=== PATIENT | male | born 1965 | race Caucasian/White ===

== ENCOUNTER 2018-12-19 16:25 | Inpatient (IN) | payer MEDICAID ==
[~2018-12-19] VITALS: Ht 185.4 cm; Wt 99.3 kg
[2018-12-19] MEDS ORDERED: BUPR-93 PO (17:59)
[2018-12-19] MEDS ORDERED: BUSP10TA23 PO (17:59)
[2018-12-19] MEDS ORDERED: LORazepam 1 MG TABLET PO PRN (20:00)
[2018-12-19] MEDS ORDERED: HALOPERIDOL 5 MG TABLET PO PRN (20:00)
[2018-12-19] MEDS ORDERED: DOCUSATE SODIUM 100 MG CAPSULE PO PRN (21:00)
[2018-12-19] MEDS ORDERED: ACETAMINOPHEN 325 MG TABLET PO PRN (21:00)
[2018-12-19] MEDS ORDERED: MAGNESIUM HYDROXIDE SUSPENSION 30 ML UDCUP PO PRN (21:00)
[2018-12-19] MEDS ORDERED: LOPERAMIDE HCL 2 MG CAPSULE PO PRN (21:00)
[2018-12-19] MEDS ORDERED: ONDANSETRON HCL 4 MG TABLET PO PRN (21:00)
[2018-12-19] MEDS ORDERED: PETROLATUM,WHITE 28 GM JELLY TP PRN (21:00)
[2018-12-19] MEDS ORDERED: GuaiFENesin/D-METHORPHAN [SUGAR-FREE] 200-20MG/10 ML SYRUP UDCUP PO PRN (21:00)
[2018-12-19] MEDS ORDERED: NICOTINE 14 MG/24 HOUR PATCH TD PRN (21:00)
[2018-12-19] MEDS ORDERED: CloNIDine HCL 0.1 MG TABLET PO PRN (21:00)
[2018-12-19] MEDS ORDERED: MAG HYDROX/AL HYDROX/SIMETH ES 30 ML SUSPENSION UDCUP PO PRN (21:00)
[2018-12-19] MEDS ORDERED: ALBUTEROL SULFATE HFA 90 MCG/PUFF 8 GM INHALER IH PRN (21:00)
[2018-12-19 21:10] VITALS: BP 143/104
[2018-12-19 22:10] VITALS: BP 109/72
[2018-12-20 06:03] VITALS: BP 114/79
[2018-12-20 07:59] LABS: BASOPHILS % (AUTO) 0.3 % (0.0-2.0); EOSINOPHILS % (AUTO) 3.9 % (1.0-6.0); HEMATOCRIT 43.2 % (41-53); HEMOGLOBIN 13.7 g/dL (13.5-17.5); LYMPHOCYTES # (AUTO) 1.6 K/uL (1.0-4.8); LYMPHOCYTES % (AUTO) 41.9 % (22.0-44.0); MEAN CORPUSCULAR HEMOGLOBIN 27.5 pg (26.0-34.0); MEAN CORPUSCULAR HGB CONC 31.7 G/dL (31.0-37.0); MEAN CORPUSCULAR VOLUME 87 fL (80-100); MONOCYTES # (AUTO) 0.3 K/uL (0.1-1.0); MONOCYTES % (AUTO) 8.8 % (2.0-9.0); NEUTROPHILS # (AUTO) 1.8 K/uL (1.8-7.7); NEUTROPHILS % (AUTO) 45.1 % (40.0-70.0); PLATELET COUNT (AUTO) 256 K/uL (150-450); RED BLOOD CELL COUNT(AUTO) 4.99 MIL/uL (4.50-5.90); RED CELL DISTRIBUTION WIDTH 16.9 % (11.5-14.5)
[2018-12-20 08:00] VITALS: BP 120/85
[2018-12-20 08:47] LABS: HEMOGLOBIN A1C 5.6 % (4.5-6.2)
[2018-12-20 09:06] LABS: ALANINE AMINOTRANSFERASE 30 U/L (12-78); ALBUMIN 3.2 g/dL (3.4-5.0); ALKALINE PHOSPHATASE 38 U/L (46-116); ANION GAP 13 mmol/L (8-16); ASPARTATE AMINOTRANSFERASE 19 U/L (15-37); BILIRUBIN,TOTAL 0.3 mg/dL (0.1-1.0); CALCIUM, TOTAL 8.9 mg/dL (8.8-10.5); CARBON DIOXIDE 26 mmol/L (22-29); CHLORIDE 104 mmol/L (98-107); CHOLESTEROL 181 mg/dL (131-200); CREATININE 0.93 mg/dL (0.60-1.30); FREE T4 (FREE THYROXINE) 1.05 ng/dL (0.76-1.46); GLOMERULAR FILTR. RATE CALC > 60 mL/min (>60); GLUCOSE,RANDOM 88 mg/dL (70-110); HDL CHOLESTEROL 45 mg/dL (40-60); LDL CHOL (CALC.) 119 mg/dL (0-130); POTASSIUM 4.8 mmol/L (3.5-5.1); SODIUM SERUM 143 mmol/L (136-145); THYROID STIMULATING HORMONE 1.57 uIU/mL (0.36-3.74); TOTAL PROTEIN, SERUM 6.3 g/dL (6.4-8.2); TRIGLYCERIDES 84 mg/dL (15-150); UREA NITROGEN, BLOOD 13 mg/dL (7-18)
[2018-12-20] MEDS: BuPROPion HCL XL 150 MG ER TABLET PO SCH (09:57)
[2018-12-20] MEDS: BusPIRone HCL 15 MG TABLET PO SCH ×2 (09:57→17:12)
[2018-12-20] MEDS: OLANZapine 5 MG TABLET PO SCH ×2 (09:57→17:12)
[2018-12-20 16:54] VITALS: BP 123/67
[2018-12-20] MEDS: PETROLATUM,WHITE 28 GM JELLY TP SCH (17:13)
[2018-12-21 06:10] VITALS: BP 125/75
[2018-12-21 08:24] VITALS: BP 121/65
[2018-12-21] MEDS: BusPIRone HCL 15 MG TABLET PO SCH ×2 (08:35→16:14)
[2018-12-21] MEDS: BuPROPion HCL XL 150 MG ER TABLET PO SCH (08:35)
[2018-12-21] MEDS: OLANZapine 5 MG TABLET PO SCH ×2 (08:35→16:14)
[2018-12-21] MEDS: PETROLATUM,WHITE 28 GM JELLY TP SCH ×3 (08:36→16:14)
[2018-12-21 16:00] VITALS: BP 114/68
[2018-12-22 05:11] VITALS: BP 111/66
[2018-12-22 08:26] VITALS: BP 113/63
[2018-12-22] MEDS: BusPIRone HCL 15 MG TABLET PO SCH ×2 (08:57→16:50)
[2018-12-22] MEDS: BuPROPion HCL XL 150 MG ER TABLET PO SCH (08:57)
[2018-12-22] MEDS: OLANZapine 5 MG TABLET PO SCH ×2 (08:57→16:50)
[2018-12-22] MEDS: PETROLATUM,WHITE 28 GM JELLY TP SCH ×3 (09:03→17:01)
[2018-12-22 16:38] VITALS: BP 105/68
[2018-12-22] MEDS: IBUPROFEN 400 MG TABLET PO PRN (20:24)
[2018-12-22] MEDS: ZOLPIDEM TARTRATE 10 MG TABLET PO PRN (20:24)
[2018-12-23 06:15] VITALS: BP 124/77
[2018-12-23 08:14] VITALS: BP 122/59
[2018-12-23] MEDS: BuPROPion HCL XL 150 MG ER TABLET PO SCH (09:25)
[2018-12-23] MEDS: OLANZapine 5 MG TABLET PO SCH ×2 (09:26→16:33)
[2018-12-23] MEDS: BusPIRone HCL 15 MG TABLET PO SCH ×2 (09:26→16:33)
[2018-12-23] MEDS: PETROLATUM,WHITE 28 GM JELLY TP SCH ×3 (09:54→16:33)
[2018-12-23 16:00] VITALS: BP 107/74
[2018-12-23 18:45] VITALS: BP 114/64
[2018-12-23] MEDS: IBUPROFEN 400 MG TABLET PO PRN (18:49)
[2018-12-23 19:45] VITALS: BP 122/78
[2018-12-23] MEDS: ZOLPIDEM TARTRATE 10 MG TABLET PO PRN (20:54)
[2018-12-24 05:39] VITALS: BP 106/65
[2018-12-24 08:08] VITALS: BP 136/81
[2018-12-24] MEDS: PETROLATUM,WHITE 28 GM JELLY TP SCH ×2 (09:12→12:59)
[2018-12-24] MEDS: OLANZapine 5 MG TABLET PO SCH (09:12)
[2018-12-24] MEDS: BusPIRone HCL 15 MG TABLET PO SCH (09:13)
[2018-12-24] MEDS: BuPROPion HCL XL 150 MG ER TABLET PO SCH (09:13)
[2018-12-24] MEDS ORDERED: OLAN5TAB2 PO (11:42)
[2018-12-24] MEDS ORDERED: BUSP15 PO (11:42)
== END 2018-12-24 13:10 | disposition home or self-care (01) | DRG 753 ==
LOC: B3A 20:09
PROVIDERS: ADMIT Psychiatry & Neurology Psychiatry; ATTEND Psychiatry & Neurology Psychiatry
DX: F31.9 Bipolar disorder, unspecified (principal); R45.851 Suicidal ideations; F20.9 Schizophrenia, unspecified; F10.10 Alcohol abuse, uncomplicated; D72.819 Decreased white blood cell count, unspecified; R03.0 Elevated blood-pressure reading, without diagnosis of hypertension; Y90.4 Blood alcohol level of 80-99 mg/100 ml; Z88.8 Allergy status to other drugs, medicaments and biological substances; Z88.0 Allergy status to penicillin; Z59.0 Homelessness
CPT/HCPCS: 83036; 84439; 84443